=== PATIENT | male | born 1950 | race Two or more races ===

== ENCOUNTER → 2019-01-26 | Outpatient (CLI) | payer MEDICARE, BC ==
[~2019-01-26] MED LIST: IOHEXOL 350 MG/ML 100ML IJ ONE
--- NOTE | 2019-01-26 09:45 | NUR ---
IV insertion IV access obtained, via clean sterile technique by inserting 22 gauge catheter at [facility] after 1 attempt(s). IV secured properly. No trauma to site. Patient tolerated procedure well. NOTE BLOOD DRAWN AND LABS SENT FOR STAT CREAT FOR CT Addendum: 01/26/19 at 1228 by Rafaela Nolasco RN RN 10 Addendum: 01/26/19 at 1229 by Rafaela Nolasco RN RN [id number] TIME CORRECTION NOT 0923
[2019-01-26 10:35] VITALS: BP 130/69
[2019-01-26 12:48] LABS: Albumin 3.7 g/dL (3.4-5.0); BUN/Creatinine Ratio 13.1; Calcium 9.1 mg/dL (8.5-10.1); Potassium 4.6 mmol/L (3.5-5.1)
[2019-01-26 12:51] LABS: Bilirubin, Total 0.8 mg/dL (0.2-1.0)
--- NOTE | 2019-01-26 12:55 | NUR ---
STAT CREAT 1.22 RESULTS BACK
--- NOTE | 2019-01-26 13:09 | NUR ---
IV removal IV DC'd with sterile technique, catheter fully intact. Pressure dressing applied to site. Patient tolerated procedure well.
[2019-01-26 13:10] VITALS: BP 141/69
--- NOTE | 2019-01-26 13:10 | NUR ---
Discharge Instructions See e-MAR for any mediations given with this visit. Patient education given on disease process. Patient verbalized understanding. Previous labs reviewed. Patient discharged in stable condition with after care instructions and follow up appointment. NOTE PATIENT EDUCATED TO DRINK PLENTY OF FLUIDS OVER THE NEXT 24 HRS
[2019-01-26 16:21] LABS: Cholesterol 148 mg/dL (< 200); HDL Cholesterol 48 mg/dL (40-59); LDL Cholesterol 84 mg/dL (< 100); Triglycerides 103 mg/dL (< 150)
[2019-01-26 16:24] LABS: Free T4 (Free Thyroxine) 0.93 ng/dL (0.89-1.76)
[2019-01-26 16:25] LABS: Prostate Specific Antigen 0.78 ng/mL (0.0-4.0)
[2019-01-26 17:20] LABS: Basophils # (auto) 0.1 uL; Basophils % (auto) 0.8 % (0.0-2.0); Eosinophils # (auto) 0.3 uL; Eosinophils % (auto) 3.4 % (0.0-7.0); Hematocrit 44.1 % (41.0-53.0); Hemoglobin 14.6 g/dL (13.5-17.5); Lymphocytes # (auto) 2.3 uL; Lymphocytes % (auto) 23.1 % (10.0-50.0); Mean Corpuscular Hemoglobin 30.6 pg (28.0-32.0); Mean Corpuscular Hgb Conc. 33.2 g/dL (32.0-36.0); Mean Corpuscular Volume 92.2 fL (80.0-100.0); Monocytes # (auto) 0.6 uL; Monocytes % (auto) 6.5 % (0.0-12.0); Neutrophils # (auto) 6.5 uL; Neutrophils % (auto) 66.2 % (37.0-80.0); Nucleated Red Blood Cells % 0.1 %; Platelet Count (auto) 191 10^3/uL (140-450); Red Blood Cells 4.78 10^6/uL (4.5-5.90); Red Cell Distribution Width 14.3 % (11.8-14.3); White Blood Cell 9.9 10^3/uL (4.4-10.8)
== END | disposition home or self-care (01) ==
LOC: Rad HDHVI 10:07
PROVIDERS: ATTEND Internal Medicine Cardiovascular Disease
DX: K80.20 Calculus of gallbladder without cholecystitis without obstruction (principal); I70.0 Atherosclerosis of aorta; R94.4 Abnormal results of kidney function studies; I10 Essential (primary) hypertension; E03.9 Hypothyroidism, unspecified; K90.9 Intestinal malabsorption, unspecified; C61 Malignant neoplasm of prostate; E29.1 Testicular hypofunction; D51.9 Vitamin B12 deficiency anemia, unspecified; Z79.899 Other long term (current) drug therapy
CPT/HCPCS: 36415; 71046; 74177; 80053; 80061; 82306; 82607; 83036; 84153; 84403; 84439; 84443; 85025; Q9967